=== PATIENT | male | born 1960 | race Caucasian/White ===

== ENCOUNTER 2024-07-10 11:41 | Inpatient (IN) ==
--- NOTE | 2024-07-10 11:49 | Emergency Department Note ---
Impression & Plan Non-STEMI (non-ST elevated myocardial infarction) TRANSFER ED Provider Note HPI: History obtained from patient. The patient is a 64-year-old male who presents the emergency department with a chief complaint of acute onset shortness of breath. EKG obtained in the field showed evidence of ST elevation PA and this was called into the department and heart alert was activated prior to the patient's presentation. On arrival here to the ED the patient is alert, he denies any current complaints. Patient denies any chest pain. Patient is noted to be hypotensive on arrival with heart rate in the 40s, he arrives on a nonrebreather mask with saturations at 98%. ROS: - Per HPI Differential Diagnosis: Acute coronary syndrome/ST elevation PA, acute heart failure, third-degree heart block, other arrhythmia, aortic dissection, amongst other potential pathologies. *Outpatient medications and allergy history reviewed. PE: General: Alert HEENT: Normocephalic, trachea midline Eyes: Extraocular eye movement is intact, no scleral erythema Pulmonary: Clear to auscultation bilaterally, no wheezing Cardio: Regular rate and rhythm GI: Abdomen is soft to palpation : No suprapubic tenderness MSK: No evidence of trauma or malformation of the extremities, no edema Skin: No evidence of rash Neuro: Alert, no focal deficits Psychiatric: Cooperative INDEPENDENT INTERPRETATIONS: desk monitor: (As interpreted by myself): - An order was placed for continuous cardiac monitoring - Patient was noted to be in junctional rhythm with a rate of 48 EKG: (As interpreted by myself): Rate: 43 Rhythm: Junctional bradycardia Intervals: IA interval indeterminate, otherwise within normal limits ST changes: ST elevation in leads II, 3, aVF, V3, V4, V5, V6 with reciprocal ST depression in leads aVL and lead V2 consistent with ST elevation PA Time: 1147 Interventions provided in ED: -Dobutamine drip, IV fluid bolus and aspirin given en route via EMS Medical Decision Making: Patient arrived to the emergency department hypotensive and bradycardic. EKG appears to be consistent with acute ST elevation PA of the inferior and lateral wall. Patient initially appeared in no acute distress however several minutes after arrival he did complain of some diaphoresis and worsening shortness of breath. Heart alert was activated and the patient was evaluated by interventional cardiology shortly after arrival, he was taken emergently to the [facility] and was started on dobutamine in the ED. Patient was also given a dose of atropine here in the ED given bradycardia and hypotension. He was transferred to the cardiac catheterization lab emergently for further management with the open end spinning operator, Dr. Jeffers. Consultants/Discussions held with other healthcare providers: -Interventional cardiology, Dr. Jeffers Disposition discussion held by myself with: -Patient and the patient's who later arrived at the bedside * CRITICAL CARE TIME: ( 34 ) minutes -Management of patient with acute ST elevation myocardial infarction, hypotension, and bradycardia/heart block requiring vasopressor support, discussion with interventional cardiology and arrangement of disposition to the cardiac catheterization lab. Diagnosis: 1. ST elevation PA, acute 2. Hypotension, acute 3. High degree heart block, acute Disposition: Transfer to cardiac catheterization lab Anthony Waite DO Emergency Medicine Past Med/Surg History Problem List (Updated 07/10/24 @ 12:43 by Anthony Waite DO) Non-STEMI (non-ST elevated myocardial infarction) (Acute) T2DM (type 2 diabetes mellitus) Medical History (Updated 07/10/24 @ 12:43 by Anthony Waite DO) History of seizures History of brain tumor meningioma History of diverticulitis Social History Smoking Status: Unknown if ever smoked Feels Safe at Home: Yes Results & Data (ED) Vital Signs Vital Signs - 24 hr 07/10/24 11:50 07/10/24 11:56 07/10/24 11:56 Pulse Rate 44 L 43 L 43 L Respiratory Rate 16 16 Blood Pressure 71/49 L Blood Pressure Mean 56 Pulse Oximetry 97 97 Oxygen Delivery Method Nasal Cannula Nasal Cannula Oxygen Flow Rate 4 4 Sepsis Recent Fever Within 48 Hours No Sepsis New/Unexplained Change in Mental Status N/A Sepsis Action Taken by Nursing No Action Required Laboratory Data 07/10/24 11:49 07/10/24 11:49 Lab Results 07/10/24 Range/Units 11:49 WBC 12.52 H (4.8-10.8) K/ul RBC 4.31 L (4.70-6.10) M/uL Hgb 13.0 L (14.0-18.0) g/dl Hct 40.4 L (42.0-52.0) % MCV 93.7 (80.0-100.0) fL MCH 30.2 (25.0-34.0) pg MCHC 32.2 (32.0-36.0) g/dL RDW Std Deviation 45.6 (36.4-46.3) fL RDW Coeff of Evelyn 13.3 (11.5-14.5) % Plt Count 169 (130-400) K/uL MPV 12.5 H (9.4-12.4) fL Immature Gran % (Auto) 1.2 % Neut % (Auto) 64.0 % Lymph % (Auto) 25.9 % [place] % (Auto) 7.1 % Eos % (Auto) 1.1 % Baso % (Auto) 0.7 % Neut # (Auto) 8.01 H (1.40-6.50) K/uL Lymph # (Auto) 3.24 (1.20-3.40) K/uL [place] # (Auto) 0.89 H (0.11-0.59) K/uL Eos # (Auto) 0.14 (0.00-0.50) K/uL Baso # (Auto) 0.09 (0.00-0.20) K/uL Immature Gran # (Auto) 0.15 (0.01-0.20) K/uL PT 11.5 (9.0-12.0) Seconds INR 1.1 (0.9-1.1) APTT 24 (21-31) Seconds PTT Ratio 0.9 Sodium 137 (136-145) mmol/L Potassium 3.9 (3.5-5.1) mmol/L Chloride 105 (98-107) mmol/L Carbon Dioxide 15 L (21-32) mmol/L Anion Gap 17 H (3-11) BUN 30 H (6-23) mg/dl Creatinine 1.76 H (0.6-1.4) mg/dl Est Cr Clr Drug Dosing Not Reportable Est GFR ( Amer) 46.0 ml/min Est GFR (Non-Af Amer) 39.7 ml/min BUN/Creatinine Ratio 17.0 (10-20) Glucose 294 H (70-99(Fasting)) mg/dl Calcium 8.2 L (8.6-10.3) mg/dl Magnesium 2.2 (1.7-2.4) mg/dl Total Bilirubin 0.5 (0.2-1.0) mg/dl AST 171 H (13-39) U/L ALT 206 H (7-52) U/L Alkaline Phosphatase 47 (34-104) U/L Total Protein 6.4 (6.0-8.3) gm/dl Albumin 3.7 (3.4-5.0) gm/dl Globulin 2.7 (2.5-4.0) gm/dl Albumin/Globulin Ratio 1.4 (0.9-2) Lipase 33 (11-82) U/L Administered Medications Dopamine HCl/Dextrose (Dopamine / D5w) 400 mg in 250 mls @ 19.913 mls/hr IV .[id number] RAYA; Protocol Stop: 08/09/24 11:59 Last Admin: 07/10/24 12:04 Dose: 10 mcg/kg/min, 39.8 mls/hr Documented By: LEROY Co-signed By: FAVIOLA Discontinued Medications Dopamine HCl/Dextrose (Dopamine 400mg / 250ml D5w) Confirm Administered Dose 400 mg IV .STK-MED ONE Stop: 07/10/24 11:50 Last Admin: 07/10/24 12:04 Dose: 10 mg.per.kg Documented By: LEROY Discharge Plan Visit Data Chief Complaint: Heart Alert ED Provider: Anthony Waite Discharge Problem: Non-STEMI (non-ST elevated myocardial infarction) Patient Disposition: Admitted As Inpatient Discharge Instructions Interventions: ED Discharge Assessment Last Done: 07/10/24 12:24
[2024-07-10] MEDS ORDERED: STAT IV Infusion **Titration per Protocol STA ×2 (11:51→13:02)
[2024-07-10 12:00] LABS: Basophils # (auto) 0.09 K/uL (0.00-0.20); Basophils % (auto) 0.7 %; Eosinophils # (auto) 0.14 K/uL (0.00-0.50); Eosinophils % (auto) 1.1 %; Hematocrit (blood only) 40.4 % (42.0-52.0); Immature Granulocytes # (auto) 0.15 K/uL (0.01-0.20); Immature Granulocytes % (auto) 1.2 %; Lymphocytes # (auto) 3.24 K/uL (1.20-3.40); Lymphocytes % (auto) 25.9 %; Mean Corpuscular Hemoglobin 30.2 pg (25.0-34.0); Mean Corpuscular Hgb Conc 32.2 g/dL (32.0-36.0); Mean Corpuscular Volume 93.7 fL (80.0-100.0); Mean Platelet Volume 12.5 fL (9.4-12.4); Monocytes # (auto) 0.89 K/uL (0.11-0.59); Monocytes % (auto) 7.1 %; Neutrophils # (auto) 8.01 K/uL (1.40-6.50); Platelet Count 169 K/uL (130-400); RDW Coefficient of Variation 13.3 % (11.5-14.5); RDW Standard Deviation 45.6 fL (36.4-46.3); Red Blood Count 4.31 M/uL (4.70-6.10); White Blood Count 12.52 K/ul (4.8-10.8)
[2024-07-10] MEDS: DOPamine / D5W 400 MG/250 ML BAG IV SCH (12:04)
[2024-07-10] MEDS: DOPamine 400MG / 250ML D5W IV ONE (12:04)
[2024-07-10 12:13] LABS: INR 1.1 (0.9-1.1); Partial Thromboplastin Ratio 0.9; Partial Thromboplastin Time 24 Seconds (21-31); Prothrombin Time 11.5 Seconds (9.0-12.0)
--- NOTE | 2024-07-10 12:16 | History & Physical Report ---
Date of Service July 10, 2024 Assessment & Plan (1) T2DM (type 2 diabetes mellitus): (2) History of seizures: History of Present Illness Primary Care Provider: LAURA Escamilla - parts sales associate called at work. Had to bring back wheel. Gasping for breath, chest pain. Back hurting called later. Pulled off at [facility] and called ambulance. Took all his medications this morning Jonathan Wilder Jose Maria Hephzibah Topamax and keppra for seizure but Simvastatin Metformin Amlodipine Lisinopril over the counter vitamin B complex, magnesium Former smoker 2008 1.5-2 packs a day since teens No alcohol No illicit drugs Past Med/Surg History Problem List (Updated 07/10/24 @ 12:10 by Bobby Ortiz MD) T2DM (type 2 diabetes mellitus) Medical History (Updated 07/10/24 @ 12:10 by Bobby Ortiz MD) History of seizures History of brain tumor meningioma History of diverticulitis Social History Smoking Status: Unknown if ever smoked Feels Safe at Home: Yes Results & Data Results & Data Vital Signs (Past 12 Hours) Vital Signs Pulse Resp BP Pulse Ox O2 Del Method O2 Flow Rate 07/10/24 11:56 43 L 16 97 Nasal Cannula 4 07/10/24 11:56 43 L 16 71/49 L 97 Nasal Cannula 4 07/10/24 11:50 44 L Code Status & VTE Plan VTE Prophylaxis Plan VTE Prophylaxis will be ordered: Yes PG Care Time/CCT Total # of Minutes Spent Total Time Spent with Patient: Total time spent is greater than 50% in coordination of care (as documented) at patient's floor/unit and/or counseling patient: Coding Diagnoses T2DM (type 2 diabetes mellitus) E11.9 History of seizures Z87.898
[2024-07-10] MEDS ORDERED: RAPID SEQUENCE INDUCTION BAG ONE (12:19)
[2024-07-10 12:29] LABS: Alanine Aminotransferase 206 U/L (7-52); Albumin Globulin Ratio 1.4 (0.9-2); Albumin Level 3.7 gm/dl (3.4-5.0); Alkaline Phosphatase 47 U/L (34-104); Anion Gap 17 (3-11); Aspartate Aminotransferase 171 U/L (13-39); Bilirubin,Total 0.5 mg/dl (0.2-1.0); Blood Urea Nitrogen 30 mg/dl (6-23); Calcium 8.2 mg/dl (8.6-10.3); Carbon Dioxide 15 mmol/L (21-32); Chloride 105 mmol/L (98-107); Est GFR (Non-African American) 39.7 ml/min; Globulin 2.7 gm/dl (2.5-4.0); Glucose 294 mg/dl (70-99(Fasting)); Lipase 33 U/L (11-82); Magnesium 2.2 mg/dl (1.7-2.4); Potassium 3.9 mmol/L (3.5-5.1); Sodium 137 mmol/L (136-145); Total Protein 6.4 gm/dl (6.0-8.3)
[2024-07-10 12:45] LABS: Troponin I High Sensitivity 3309.8 pg/ml (0-20)
[2024-07-10] MEDS ORDERED: fentaNYL BOLUS from BAG IV PRN (13:02)
[2024-07-10 13:06] LABS: iSTAT Arterial Blood Gas HCO3 15 meg/L (19-24); iSTAT Arterial Blood Gas pCO2 43 mmHg (35-46); iSTAT Arterial Blood Gas pH 7.15 (7.35-7.45); iSTAT Arterial Blood Gas pO2 327 mmHg (80-95); iSTAT Carbon Dioxide 16 mmol/L (24-31); iSTAT Hematocrit 42 % (42-52); iSTAT Hemoglobin 14.3 g/dl (14.0-18.0); iSTAT Potassium 3.9 mmol/L (3.3-5.0); iSTAT Sodium 134 mmol/L (135-144)
[2024-07-10] MEDS: fentaNYL citrate PF 100 MCG/2 ML VIAL ONE (13:52)
[2024-07-10] MEDS: OPTIRAY 350 ONE (13:53)
[2024-07-10] MEDS: niCARdipine HCL INJ 2.5 MG/ML 10 ML AMP ONE (13:53)
[2024-07-10] MEDS: MIDAZOLAM HCL 1 MG/ML 2ML VIAL ONE (13:53)
[2024-07-10] MEDS: NITROGLYCERIN/D5W 100MCG/ML 20ML SYR ONE (13:54)
[2024-07-10] MEDS: LIDOCAINE 1% LOCAL 20 ML VIAL ONE (13:54)
[2024-07-10] MEDS: PHENYLEPHRINE HCL 25 MG/250 ML NSS IV ONE (13:54)
[2024-07-10] MEDS: AMIODARONE 150MG / 100ML D5W (CATH LAB USE ONLY) IV ONE (13:54)
[2024-07-10] MEDS: PROPOFOL IV EMULSION 10 MG/ML 100 ML VIAL IV ONE (13:55)
[2024-07-10] MEDS: HEPARIN (PORCINE) 1000 UNIT/ML 10 ML (CATH LAB USE ONLY) ONE ×3 (13:55→13:58)
[2024-07-10] MEDS: AMIODARONE 360MG / 200ML D5W (CATH LAB USE ONLY) IV ONE (13:55)
[2024-07-10] MEDS: PROPOFOL IV EMULSION 10 MG/ML 20 ML VIAL (CATH LAB USE ONLY) IV ONE ×2 (13:55)
[2024-07-10] MEDS ORDERED: SODIUM BICARB 8.4% INJ 50 MEQ/50 ML SYR IV ONE (13:56)
[2024-07-10] MEDS: SODIUM BICARB 8.4% INJ 50 MEQ/50 ML SYR IV ONE (13:56)
[2024-07-10] MEDS: EPTIFIBATIDE 0.75 MG/ML 75MG VIAL (CATH LAB USE ONLY) IV ONE (13:56)
[2024-07-10] MEDS: fentaNYL citrate 2,500 MCG/250 ML BAG IV SCH (13:57)
[2024-07-10] MEDS: HEPARIN 25000 UNIT/500 ML D5W IV ONE (13:57)
[2024-07-10] MEDS: NOREPINEPHRINE/D5W 4 MG/250 ML IV ONE (13:58)
[2024-07-10] MEDS ORDERED: NOREPINEPHRINE/D5W 4 MG/250 ML IV ONE (14:03)
[2024-07-10 14:13] LABS: iSTAT Arterial Blood Gas HCO3 19 meg/L (19-24); iSTAT Arterial Blood Gas pCO2 42 mmHg (35-46); iSTAT Arterial Blood Gas pH 7.25 (7.35-7.45); iSTAT Arterial Blood Gas pO2 34 mmHg (80-95); iSTAT Carbon Dioxide 20 mmol/L (24-31); iSTAT Hematocrit 41 % (42-52); iSTAT Hemoglobin 13.9 g/dl (14.0-18.0); iSTAT Potassium 3.7 mmol/L (3.3-5.0); iSTAT Sodium 139 mmol/L (135-144)
[2024-07-10 14:14] LABS: iSTAT Arterial Blood Gas HCO3 13 meg/L (19-24); iSTAT Arterial Blood Gas pCO2 31 mmHg (35-46); iSTAT Arterial Blood Gas pH 7.24 (7.35-7.45); iSTAT Arterial Blood Gas pO2 357 mmHg (80-95); iSTAT Carbon Dioxide 14 mmol/L (24-31); iSTAT Hematocrit 41 % (42-52); iSTAT Hemoglobin 13.9 g/dl (14.0-18.0); iSTAT Potassium 3.3 mmol/L (3.3-5.0); iSTAT Sodium 128 mmol/L (135-144)
[2024-07-10 14:14] LABS: iSTAT Arterial Blood Gas HCO3 17 meg/L (19-24); iSTAT Arterial Blood Gas pCO2 37 mmHg (35-46); iSTAT Arterial Blood Gas pH 7.28 (7.35-7.45); iSTAT Arterial Blood Gas pO2 43 mmHg (80-95); iSTAT Carbon Dioxide 19 mmol/L (24-31); iSTAT Hematocrit 39 % (42-52); iSTAT Hemoglobin 13.3 g/dl (14.0-18.0); iSTAT Potassium 3.6 mmol/L (3.3-5.0); iSTAT Sodium 139 mmol/L (135-144)
[2024-07-10 14:14] LABS: iSTAT Arterial Blood Gas HCO3 14 meg/L (19-24); iSTAT Arterial Blood Gas pCO2 31 mmHg (35-46); iSTAT Arterial Blood Gas pH 7.28 (7.35-7.45); iSTAT Arterial Blood Gas pO2 387 mmHg (80-95); iSTAT Carbon Dioxide 15 mmol/L (24-31); iSTAT Hematocrit 41 % (42-52); iSTAT Hemoglobin 13.9 g/dl (14.0-18.0); iSTAT Potassium 3.7 mmol/L (3.3-5.0); iSTAT Sodium 130 mmol/L (135-144)
[2024-07-10] MEDS: IODIXANOL (VISIPAQUE) 320 MG/ML 100ML IV ONE (14:33)
[2024-07-10] MEDS ORDERED: ETOMIDATE 2 MG/ML 20 ML VIAL IV ONE (14:34)
[2024-07-10] MEDS ORDERED: SUCCINYLCHOLINE CHLORIDE 20 MG/ML 10 ML VIAL IV ONE (14:34)
[2024-07-10] MEDS ORDERED: ATROPINE SULFATE 0.1 MG/ML 10ML SYR IV ONE (14:34)
--- NOTE | 2024-07-10 14:48 | Cardiac Catheterization ---
[facility] Data: [facility] Cardiac Status Clinical evaluation leading to the procedure CAD Presenation: STEMI Anginal Classification: CCS IV Diagnostic Physicians Name: Edgardo Jeffers MD Closure Device Recommendations: PCI without planned CABG Cardiac Cath Procedure Full Procedure Date July 10, 2024 Pre-Procedure Diagnosis Pre-Procedure Diagnosis: STEMI AUC Score AUC Score: 9 Post-Procedure Diagnosis Post-Procedure Diagnosis: Severe CAD, Successful PCI and Elevated Intracardiac Pressures Procedure(s) Performed Procedure(s) Performed: Coronary Angiography, Left Heart Cath, Right Heart Cath, Drug Eluting Stent, Ultrasound Guided Vascular Access, Femoral Artery Angiography and Procedure (Impella CP placement) Hotel Service Supervisor Edgardo Jeffers MD Professional Development Instructor(s) [place] Estimated Blood Loss Estimated Blood Loss: 50 Medication(s) Medication(s): Adenosine, Dopamine, Fentanyl, Heparin, Integrilin, Lidocaine 1%, Nicardipine, Nitroglycerin and Norepinephrine Medication(s): Amiodarone, propofol Summary of Findings Indication: Inferior STEMI Access: 6 Fr right CLIENT REPRESENTATIVE under ultrasound guidance, 7 Fr right CFV under ultrasound guidance Catheters: JR4, JL 4, JR4 guide, 6 Fr [place] Findings: LM -calcified, 75% distal just before bifurcation LAD -medium caliber, calcified, 40% diffuse mid segment disease, distal vessel without significant disease and extends to apex Circumflex -medium caliber, 98% subtotal ostial stenosis at takeoff of high OM1. Diffuse mid to distal circumflex disease with LISA I-II flow in terminal OM 2. RCA -dominant, calcified, acute 100% proximal occlusion -- PCI -- Antithrombotic therapy: Heparin, Integrilin Procedure: Bradycardic to 40s, hypotensive to 60s to 70s on presentation to the Engine [facility]. Given atropine and started on dopamine prior to procedure Temporary pacer wire placed prior to diagnostic angiogram Increasingly hypotensive despite escalation of dopamine, norepinephrine with progressive respiratory failure Decision to place Impella and for intubation. 6 Fr CLIENT REPRESENTATIVE sheath exchanged for short 14 Fr Impella sheath 10,000 units of heparin administered and ACT >250 Femoral angiogram revealed diffusely diseased iliac but suitable for Impella disease Aortic valve crossed with pigtail and 0.18 wire placed and LV Impella CP placed across aortic valve and left at auto settings with cardiac output between 3.4 and 3.8 L Patient intubated successfully by Dr. Waite RCA cannulated with JR4 guide Top Tile Decorator 50 wire passed across proximal occlusion into distal vessel Proximal RCA lesion predilated with 2.0 and 2.5 compliant balloons Case discussed with [facility] cardiac surgery regarding stenting versus acute bypass on transfer. With acute VT and cardiogenic shock goal was to delay CABG and decision made to proceed with RCA stenting Proximal RCA angioplasty again with 2.5 and 3.0 balloons With the aid of a GuideLiner able to stent proximal RCA with 3.0 x 18 mm Evan drug-eluting stent Distal severe RCA stenosis stented with 2.5 x 15 mm Evan. Stent postdilated with stent balloon Distal aspect of initial proximal stent stenosis persisted and third OPAL (3.0 x 12) placed from proximal to mid segment overlapping distal aspect of initial stent Proximal to mid stents post-dilated with 3.5 noncompliant balloon IC vasodilators administered for mid segment spasm Post procedure LISA 3 flow, stents well expanded with minimal residual stenosis and no apparent cardiac complications. Right heart catheterization after flow reestablished before stenting: RA 13 RV 43/17 PA 28/15 (20) PAWPunable to wedge PaSat 57% AoSat 100% With reestablished RCA flow/RCA stenting patient had improved hemodynamics. Able to wean off dopamine and wean down norepinephrine to 0.25. PA sat on completion of case with 73% with Impella CP on auto settings with 3.6 L output. On Integrilin, amiodarone infusions and sedation with propofol/fentanyl. Impella sheath, right CFV RHC catheter sheath sutured in place. Summary: 1. Severe multi vessel coronary artery disease -Acute 100% proximal RCA occlusion. 80-90% distal RCA stenosis 75% calcified distal left main 98% ostial circumflex at takeoff of high OM1 with LISA 1-2 flow 2. Cardiogenic shock 3. Acute hypoxic respiratory failure 4. Successful placement of transvenous pacemaker 5. Successful placement of Impella CP device 6. Successful PCI of proximal to mid RCA with 2 overlapping drug-eluting stents (3.0 x 18, 3.0 x 12 Castana; postdilated with 3.5 NC). 7. Successful PCI of distal RCA with additional OPAL (2.5 x 15 mm Castana). Recommendations: Transfer to [facility] cardiac ICU Hemodynamics Rest Ao:: 71/45/57 Final Ao: 110/67/80 LV: -- Recommendations Recommendations: PCI without planned CABG Specimens Specimens: None Radiation Exposure (mGy) 4580 Contrast (mls) 130 Anesthesia 1499-3229 Procedural Complication(s) None Disposition anali quiles I attest to the content of the Intraoperative Record and any orders documented therein. Any exceptions are noted below. [facility] [place] Card Cath Procedure Codes Cardiac Catheterization Procedure 1: Cardiovascular Cath Procedures: 27308 Coronaries & LHC (+/-LV) & RHC Therapeutic Services & Ancillary Procedure 1: Cardiovascular Tx and Anc Procedures: 17153 Insertion of Percutaneous Ventricular Assist Device Procedure 2: Cardiovascular Tx and Anc Procedures: 39883 Ultrasonic Guidance Vascular Access Procedure 3: Cardiovascular Tx and Anc Procedures: 57759 Ultrasonic Guidance Vascular Access Procedure 4: Cardiovascular Tx and Anc Procedures: 96701 Temp Pacer Insert Moderate Sedation Procedure 1: Sedation/Anesthesia: 94264 Mod Sedation by the same physician;Init15 Min Child Age 5 & Up Procedure 2: Sedation/Anesthesia: 71611 Mod Sedation by the same physician; Ea Mnopepbell52 Minutes Stenting Procedure 1: Cardiovascular Stent Procedures: 83803 Perc transluminal revascularization of acute sub/total occl, aMI PG Care Time/CCT Total # of Minutes Spent Total Time Spent with Patient: Total time spent is greater than 50% in coordination of care (as documented) at patient's floor/unit and/or counseling patient:
--- NOTE | 2024-07-10 16:46 | Cardiology Consultation ---
Date of Consultation July 10, 2024 Assessment & Plan (1) Acute MO: Presentation consistent with inferior STEMI and recommend proceeding with emergent cardiac catheterization and likely primary PCI. No apparent contraindications to procedure. Discussed risks, benefits, alternatives of procedure with patient and his and they are willing to proceed. Further recommendations pending findings of coronary angiography. History of Present Illness Attending Physician: Edgardo Jeffers MD History of Present Illness Mr. London is a 64-year-old man here with acute chest pain and ECG concerning for acute MO. Patient seen emergently in the ED after heart alert activated en route. No prior cardiac history. Cardiac risk factors include type 2 diabetes, hypertension, dyslipidemia. Other medical issues include history of meningioma and seizure disorder. When seen in the ED patient hypotensive to the 70s, heart rate in the 40s with ECG showing inferior ST elevation. He was slow to answer questions and unable to provide details about presenting symptoms. 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 In the ED denied chest pain but reported ongoing shortness of breath, diaphoresis. In ED In ED given aspirin and started on dopamine, given atropine x 1. Home Medications Medication Instructions Recorded Confirmed Type amlodipine 10 mg tablet 10 mg PO DAILY 07/10/24 07/10/24 History dapagliflozin propanediol 5 mg 5 mg PO DAILY 07/10/24 07/10/24 History tablet (Farxiga) levetiracetam 500 mg tablet 1,000 mg PO HS 07/10/24 07/10/24 History (Keppra) lisinopril 10 mg tablet 10 mg PO DAILY 07/10/24 07/10/24 History magnesium oxide 400 mg PO DAILY 07/10/24 07/10/24 History metformin 500 mg tablet,extended 2,000 mg PO DAILY 07/10/24 07/10/24 History release 24 hr potassium chloride 20 mEq oral 20 meq PO BID 07/10/24 07/10/24 History packet (Klor-Con) simvastatin 40 mg tablet 40 mg PO HS 07/10/24 07/10/24 History topiramate 50 mg tablet (Topamax) 100 mg PO BID 07/10/24 07/10/24 History vitamin B complex 1 tab PO DAILY 07/10/24 07/10/24 History Patient History Medical History (Updated 07/10/24 @ 17:00 by Edgardo Jeffers MD) Hypertension T2DM (type 2 diabetes mellitus) Hyperlipidemia Palpitations History of seizures History of brain tumor meningioma History of diverticulitis Social History Smoking Status: Unknown if ever smoked Feels Safe at Home: Yes Review of Systems 2 Review of Systems: Unobtainable due to cognitive status Physical Exam Physical Exam: General: Sleepy, uncomfortable HEENT: Sclerae anicteric Lungs: Clear anteriorly Cardiac: Bradycardic, regular Vascular: Diminished radial pulses Abdomen: Soft, Extremities: no peripheral edema Results & Data Vital Signs (Past 12 Hours) Vital Signs Pulse Resp BP Pulse Ox O2 Del Method O2 Flow Rate FiO2 07/10/24 12:30 58 L 18 100 07/10/24 11:56 43 L 16 97 Nasal Cannula 4 07/10/24 11:56 43 L 16 71/49 L 97 Nasal Cannula 4 07/10/24 11:50 44 L PG Care Time/CCT Total # of Minutes Spent Total Time Spent with Patient: Total time spent is greater than 50% in coordination of care (as documented) at patient's floor/unit and/or counseling patient: Coding Level of Care Code 36262 OFFICE CONSULT LVL Diagnoses Acute MO I21.9
--- NOTE | 2024-07-10 20:58 | Emergency Department Note ---
ED Visit Note ET INTUBATION: I was called to the cardiac catheterization suite to assist with emergent intubation. Indication: Cardiogenic shock Medications: Etomidate 20mg, Succinylcholine 80mg Utilizing glidescope a 3.0 blade was inserted into the airway with good visualization of the vocal cords. A 7.5 sized ET tube was advanced past the cords. Balloon was inflated and stylet removed.ET tube was secured at approximately 26cm at the lip. Capnography showed appropriated color change. .
--- NOTE | 2024-07-12 05:51 | Electrocardiogram Report ---
Test Reason : Blood Pressure : */* mmHG Vent. Rate : 43 BPM Atrial Rate : * BPM P-R Int : * ms QRS Dur : 106 ms QT Int : 510 ms P-R-T Axes : * 86 83 degrees QTcB Int : [address] elevation consider anterolateral injury or acute infarct ST elevation consider inferior injury or acute infarct ACUTE MT / STEMI Consider right ventricular involvement in acute inferior infarct Abnormal ECG No previous ECGs available Confirmed by Matt Garcia ([id number]) on 07/12/2024 5:51:33 AM Referred By: REFERRED SELF Confirmed By: Matt Garcia
== END 2024-07-10 14:35 | disposition short-term general hospital (02) | DRG 215 ==
LOC: ED 11:41 → ASUINP 11:51 → CC 11:56